=== PATIENT | male | born 1955 | race Two or more races ===

== ENCOUNTER 2018-07-09 17:37 | Emergency (ER) | payer OTHER ==
[~2018-07-09] VITALS: Ht 182.9 cm; Wt 104.3 kg
[2018-07-09] MEDS ORDERED: LIPITOR20 MG (18:08)
[2018-07-09] MEDS ORDERED: TAMS0.4C (18:08)
[2018-07-09] MEDS ORDERED: ZANTAC150 M3 (18:09)
[2018-07-09] MEDS ORDERED: TOPROL XL25 MG (18:09)
== END 2018-07-09 22:52 | disposition home or self-care (01) ==
LOC: ER 17:37
DX: N39.0 Urinary tract infection, site not specified (principal); R31.0 Gross hematuria